=== PATIENT | female | born 1940 ===

== ENCOUNTER 2016-12-09 07:06 | Day surgery (SDC) | payer MEDICARE, OTHER ==
[2015-12-25 13:02] VITALS: BMI 29.2
[2016-12-09] MEDS ORDERED: Lactated Ringer's 500 ML IV ONE (07:42)
[2016-12-09] MEDS ORDERED: Midazolam 2 MG/2 ML VIAL ONE (07:57)
[2016-12-09] MEDS ORDERED: Propofol 10 mg/ml Inj (20 ML) ONE (07:57)
[2016-12-09 09:08] VITALS: RESP 19; TEMP 96.6
[2016-12-09 09:17] VITALS: BP 91/60; PULSE 65; O2SAT 97
== END 2016-12-09 09:50 | disposition home or self-care (01) ==
LOC: H.ENDO 07:06
PROVIDERS: ATTEND Internal Medicine Gastroenterology
DX: R10.13 Epigastric pain (principal); K31.89 Other diseases of stomach and duodenum; K31.9 Disease of stomach and duodenum, unspecified
CPT/HCPCS: 43239; 88305; J2001; J2250; J2704; J7120